=== PATIENT | female | born 1955 | race American Indian/Alaskan Native ===

== ENCOUNTER 2018-12-27 11:34 | Observation (INO) | payer BC, OTHER ==
[2018-12-27] MEDS ORDERED: Sodium Chloride 0.9% 1,000 ML IV ONE (11:40)
--- NOTE | 2018-12-27 11:40 | EDM.PDOC ---
ED HPI GENERAL MEDICAL PROBLEM - General Chief Complaint: General Stated Complaint: AMB Time Seen by Provider: 12/27/18 11:40 Source of Information: Reports: Patient History Limitations: Reports: No Limitations - History of Present Illness INITIAL COMMENTS - FREE TEXT/NARRATIVE: HISTORY AND PHYSICAL: History of present illness: Patient is a 63-year-old female who is brought to the emergency room by ambulance after a hypoglycemic event. Patient states she recently saw her primary care provider, Dr. Ladonna Santana for improved management of her diabetes. She states that there have been some changes in the insulin she has been administering. states that he draws up her short and long acting insulin for a week at a time. This morning she took 52 units of her long-acting insulin approximately 7 AM. She had fallen asleep after that. Family found her diaphoretic and difficult to arouse. They state her blood sugar was 37. When EMS arrived her blood sugar was reading 29. They administered one amp of D50 and 2 oral glucose tabs. Upon arrival to the emergency room her blood sugar is 119. She is alert and oriented although slow to respond. Her vital signs are stable. Patient has a past medical history of hypertension, type 2 diabetes with long- term insulin use, coronary artery disease, SD with stents, hypothyroidism. Review of systems: As per history of present illness and below otherwise all systems reviewed and negative. Past medical history: As per history of present illness and as reviewed below otherwise noncontributory. Surgical history: As per history of present illness and as reviewed below otherwise noncontributory. Social history: See social history for further information Family history: As per history of present illness and as reviewed below otherwise noncontributory. Physical exam: General: Well-developed and well-nourished 63-year-old female. She is alert and oriented, although slow to respond. Nontoxic appearing and in no acute distress. HEENT: Atraumatic, normocephalic, pupils equal and reactive bilaterally, negative for conjunctival pallor or scleral icterus, mucous membranes moist, TMs normal bilaterally, throat clear, neck supple, nontender, trachea midline. No drooling or trismus noted. No meningeal signs. No hot potato voice noted. Lungs: Clear to auscultation, breath sounds equal bilaterally, chest nontender. Heart: S1S2, regular rate and rhythm without overt murmur Abdomen: Soft, nondistended, nontender. Negative for masses or hepatosplenomegaly. Negative for costovertebral tenderness. Pelvis: Stable nontender. Genitourinary: Deferred. Rectal: Deferred. Skin: Patient's skin is diaphoretic from previous hypoglycemic event. Otherwise skin is intact and warm. No lesions or rashes noted. Extremities: Atraumatic, moves all extremities per self without difficulty or deficits, negative for cords or calf pain. Neurovascular unremarkable. Neuro: Awake, alert, oriented. Cranial nerves II through XII unremarkable. Cerebellum unremarkable. Motor and sensory unremarkable throughout. Exam nonfocal. Notes: Patient states she has not had breakfast/food yet this morning. We'll try has been ordered and we'll continue to monitor her blood sugar. Will give additional dextrose if needed. is at bedside. Vital signs are stable. 1218: After eating part of a meal tray; blood sugar 153. Vital signs remain stable. 1300: Patient has elevated troponin of 0.061. Patient denies any chest pain or shortness of breathe. This was initially ordered due to her PMH and delayed verbal response and difficulty tell me her symptoms and events leading up to EMS being called. Patients only complaints at this time is a generalized headache. 1305: Originally the ER provider at [facility] was consulted on this patient. She states that they are happy to accept this patient although feel that her troponin does not warrant the transfer itself. Dr. Soto did happen to be here evaluating another patient and therefore he was consulted. Dr Soto here to evaluate patient. Patient will be admitted for observation. Brittany did discuss with patient and family transfer versus admission. They're willing to and requesting to stay here at our facility. Blood glucose 212. Diagnostics: CBC, CMP, EKG, one view chest, UA, TSH, Troponin Therapeutics: IV fluid, meal tray, Aspirin 324 chew Impression: Hypoglycemia Elevated Troponin Plan: Observation admission to [facility] with telemetry Definitive disposition and diagnosis as appropriate pending reevaluation and review of above. Onset: Today - Related Data Allergies Allergy/AdvReac Type Severity Reaction Status Date / Time Penicillins Allergy Severe Shortness Verified 12/27/18 11:50 of Breath metformin Allergy Mild itchiness Verified 12/27/18 11:50 propoxyphene HCl Allergy Mild itchiness Verified 12/27/18 11:50 [From Darvon] sulfamethoxazole Allergy Mild itchiness Verified 12/27/18 11:50 [From Bactrim] trimethoprim [From Bactrim] Allergy Mild itchiness Verified 12/27/18 11:50 propoxypene Allergy Mild itchiness Uncoded 05/15/16 13:38 Home Meds: Home Meds Chlorthalidone 25 mg PO DAILY 05/15/16 [History] Glimepiride [Amaryl] 4 mg PO BIDAC 05/15/16 [History] Insulin Aspart [Novolog Flexpen] 5 unit SQ TIDAC 05/15/16 [History] Insulin Detemir [Levemir Flextouch] 63 unit SQ ACBREAKFAST 05/15/16 [History] Levothyroxine 75 mcg PO ACBREAKFAST 05/15/16 [History] Metoprolol Tartrate 25 mg PO DAILY 05/15/16 [History] Nitroglycerin [Nitrostat] 0.4 mg SL Q5M PRN 05/15/16 [History] Ramipril [Altace] 5 mg PO DAILY 05/15/16 [History] Rosuvastatin Calcium 10 mg PO DAILY 05/15/16 [History] Aspirin [Ecotrin] 325 mg PO DAILY 30 Days tablet. 05/16/16 [Rx] Past Medical History HEENT History: Reports: Epistaxis Other HEENT History: with blood thinner Cardiovascular History: Reports: CAD, High Cholesterol, Hypertension, SD, Stents Other Cardiovascular History: Stents X 1, 3 yrs ago [employer] History: Reports: Musculoskeletal History: Reports: Neck Pain, Chronic, Osteoarthritis Endocrine/Metabolic History: Reports: Diabetes, Type II, Hypothyroidism Oncologic (Cancer) History: Reports: Uterine Other Oncologic History: hysterectomy - Past Surgical History GI Surgical History: Reports: Cholecystectomy, Hernia, Abdominal Social & Family History - Family History Family Medical History: Noncontributory Cardiac: Reports: Bypass, [place] Other Cardiac Family History: parents - heart bypass Other Respiratory Family Hisory: mother - lung CA Other Oncologic Family History: lung Ca- mother. brother - brain tumor. brain Ca- Aunt. Uncle - stomach CA ED ROS GENERAL - Review of Systems Review Of Systems: ROS reveals no pertinent complaints other than HPI. ED EXAM, GENERAL - Physical Exam Exam: See Below (See dictation) Course - Vital Signs Last Recorded V/S: Last Vital Signs Temp 96.2 F 12/27/18 11:51 Pulse 69 12/27/18 11:51 Resp 17 12/27/18 11:51 BP 112/64 12/27/18 11:51 Pulse Ox 96 12/27/18 11:51 - Orders/Labs/Meds Orders: Active Orders 24 hr Category Date Time Status Admission Status [Patient Status] [ADT] Stat ADT 12/27/18 13:19 Active Blood Glucose Check, Bedside [RC] ONETIME Care 12/27/18 11:41 Active Communication Order [RC] STAT Care 12/27/18 11:43 Active EKG Documentation Completion [RC] STAT Care 12/27/18 11:41 Active Chest 1V Frontal [CR] Stat Exams 12/27/18 11:41 Taken Sodium Chloride 0.9% [Normal Saline] 1,000 ml Med 12/27/18 11:40 Active IV STAT Medication Orders Sodium Chloride (Normal Saline) 1,000 mls @ 125 mls/hr IV STAT ONE Stop: 12/27/18 19:39 Last Admin: 12/27/18 11:44 Dose: 125 mls/hr Labs: Laboratory Tests 12/27/18 12/27/18 12/27/18 Range/Units 11:58 11:58 11:58 WBC 10.56 (4.0-11.0) K/uL RBC 4.38 (4.30-5.90) M/uL Hgb 12.6 (12.0-16.0) g/dL Hct 37.3 (36.0-46.0) % MCV 85.2 (80.0-98.0) fL MCH 28.8 (27.0-32.0) pg MCHC 33.8 (31.0-37.0) g/dL RDW Std Deviation 43.1 (28.0-62.0) fl RDW Coeff of Gurinder 14 (11.0-15.0) % Plt Count 233 (150-400) K/uL MPV 10.30 (7.40-12.00) fL Neut % (Auto) 82.9 H (48.0-80.0) % Lymph % (Auto) 9.0 L (16.0-40.0) % [place] % (Auto) 6.4 (0.0-15.0) % Eos % (Auto) 1.4 (0.0-7.0) % Baso % (Auto) 0.3 (0.0-1.5) % Neut # (Auto) 8.8 H (1.4-5.7) K/uL Lymph # (Auto) 1.0 (0.6-2.4) K/uL [place] # (Auto) 0.7 (0.0-0.8) K/uL Eos # (Auto) 0.2 (0.0-0.7) K/uL Baso # (Auto) 0.0 (0.0-0.1) K/uL Sodium 141 (136-145) mmol/L Potassium 3.8 (3.5-5.1) mmol/L Chloride 106 (98-107) mmol/L Carbon Dioxide 25.3 (21.0-32.0) mmol/L BUN 25 H (7.0-18.0) mg/dL Creatinine 1.0 (0.6-1.0) mg/dL Est Cr Clr Drug Dosing TNP Estimated GFR (MDRD) 56.4 ml/min Glucose 102 (74-106) mg/dL Calcium 8.8 (8.5-10.1) mg/dL Total Bilirubin 0.4 (0.2-1.0) mg/dL AST 14 L (15-37) IU/L ALT 18 (14-63) IU/L Alkaline Phosphatase 95 (46-116) U/L Troponin I 0.061 H* (0.000-0.056) ng/mL Total Protein 7.0 (6.4-8.2) g/dL Albumin 3.0 L (3.4-5.0) g/dL Globulin 4.0 (2.6-4.0) g/dL Albumin/Globulin Ratio 0.8 L (0.9-1.6) TSH 3rd Generation 6.87 H (0.36-3.74) uIU/mL Urine Color Urine Appearance Urine pH (5.0-8.0) Ur Specific [place] (1.001-1.035) Urine Protein (NEGATIVE) mg/dL Urine Glucose (UA) (NEGATIVE) mg/dL Urine Ketones (NEGATIVE) mg/dL Urine Occult Blood (NEGATIVE) Urine Nitrite (NEGATIVE) Urine Bilirubin (NEGATIVE) Urine Ictotest Urine Urobilinogen (<2.0) EU/dL Ur Leukocyte Esterase (NEGATIVE) 12/27/18 Range/Units 13:05 WBC (4.0-11.0) K/uL RBC (4.30-5.90) M/uL Hgb (12.0-16.0) g/dL Hct (36.0-46.0) % MCV (80.0-98.0) fL MCH (27.0-32.0) pg MCHC (31.0-37.0) g/dL RDW Std Deviation (28.0-62.0) fl RDW Coeff of Gurinder (11.0-15.0) % Plt Count (150-400) K/uL MPV (7.40-12.00) fL Neut % (Auto) (48.0-80.0) % Lymph % (Auto) (16.0-40.0) % [place] % (Auto) (0.0-15.0) % Eos % (Auto) (0.0-7.0) % Baso % (Auto) (0.0-1.5) % Neut # (Auto) (1.4-5.7) K/uL Lymph # (Auto) (0.6-2.4) K/uL [place] # (Auto) (0.0-0.8) K/uL Eos # (Auto) (0.0-0.7) K/uL Baso # (Auto) (0.0-0.1) K/uL Sodium (136-145) mmol/L Potassium (3.5-5.1) mmol/L Chloride (98-107) mmol/L Carbon Dioxide (21.0-32.0) mmol/L BUN (7.0-18.0) mg/dL Creatinine (0.6-1.0) mg/dL Est Cr Clr Drug Dosing Estimated GFR (MDRD) ml/min Glucose (74-106) mg/dL Calcium (8.5-10.1) mg/dL Total Bilirubin (0.2-1.0) mg/dL AST (15-37) IU/L ALT (14-63) IU/L Alkaline Phosphatase (46-116) U/L Troponin I (0.000-0.056) ng/mL Total Protein (6.4-8.2) g/dL Albumin (3.4-5.0) g/dL Globulin (2.6-4.0) g/dL Albumin/Globulin Ratio (0.9-1.6) TSH 3rd Generation (0.36-3.74) uIU/mL Urine Color YELLOW Urine Appearance CLEAR Urine pH 6.0 (5.0-8.0) Ur Specific [place] 1.025 (1.001-1.035) Urine Protein NEGATIVE (NEGATIVE) mg/dL Urine Glucose (UA) 100 H (NEGATIVE) mg/dL Urine Ketones TRACE H (NEGATIVE) mg/dL Urine Occult Blood NEGATIVE (NEGATIVE) Urine Nitrite NEGATIVE (NEGATIVE) Urine Bilirubin SMALL H (NEGATIVE) Urine Ictotest NEGATIVE Urine Urobilinogen 1.0 (<2.0) EU/dL Ur Leukocyte Esterase NEGATIVE (NEGATIVE) Meds: Medications Generic Name Dose Route Start Last Admin Trade Name Freq PRN Reason Stop Dose Admin Sodium Chloride 1,000 mls @ 125 mls/hr 12/27/18 11:40 12/27/18 11:44 Normal Saline IV 12/27/18 19:39 125 mls/hr STAT ONE Administration Discontinued Medications Generic Name Dose Route Start Last Admin Trade Name Freq PRN Reason Stop Dose Admin Aspirin 324 mg 12/27/18 13:06 12/27/18 13:09 Aspirin PO 12/27/18 13:07 324 mg ONETIME ONE Administration Dextrose/Water 50 ml 12/27/18 11:52 12/27/18 12:22 Dextrose 50% In Water IVPUSH 12/27/18 11:53 Not Given ONETIME ONE Morphine Sulfate 2 mg 12/27/18 12:48 12/27/18 12:54 Morphine IVPUSH 12/27/18 12:49 2 mg ONETIME ONE Administration Departure - Departure Time of Disposition: 13:34 Disposition: Refer to Observation Clinical Impression: Hypoglycemia, Elevated troponin - Discharge Information Referrals: PCP,Unknown [Primary Care Provider] - Forms: ED Department Discharge - My Orders Last 24 Hours: My Active Orders 12/27/18 11:40 Sodium Chloride 0.9% [Normal Saline] 1,000 ml IV STAT 12/27/18 11:41 Blood Glucose Check, Bedside [RC] ONETIME EKG Documentation Completion [RC] STAT Chest 1V Frontal [CR] Stat 12/27/18 11:43 Communication Order [RC] STAT 12/27/18 13:19 Admission Status [Patient Status] [ADT] Stat - Assessment/Plan Last 24 Hours: My Active Orders 12/27/18 11:40 Sodium Chloride 0.9% [Normal Saline] 1,000 ml IV STAT 12/27/18 11:41 Blood Glucose Check, Bedside [RC] ONETIME EKG Documentation Completion [RC] STAT Chest 1V Frontal [CR] Stat 12/27/18 11:43 Communication Order [RC] STAT 12/27/18 13:19 Admission Status [Patient Status] [ADT] Stat
[2018-12-27] MEDS ORDERED: 50% Dextrose in Water 50 ML Syringe IVPUSH ONE (11:52)
[2018-12-27] MEDS ORDERED: Morphine 2 MG/ML Syringe IVPUSH ONE (12:48)
[2018-12-27 12:50] LABS: CHLORIDE,CL 106 mmol/L (98-107); SODIUM,NA 141 mmol/L (136-145)
[2018-12-27] MEDS ORDERED: Aspirin 81 MG Tab.Chew PO ONE (13:06)
[2018-12-27] MEDS ORDERED: Morphine 2 MG/ML Syringe IVPUSH PRN (14:58)
[2018-12-27] MEDS ORDERED: Sodium Chloride 0.9% 10 ML Syringe FLUSH PRN (14:58)
[2018-12-27] MEDS ORDERED: Ondansetron 4 MG/2 ML SDV IVPUSH PRN (14:58)
[2018-12-27] MEDS ORDERED: Sodium Chloride 0.9% 10 ML SDV IV PRN (14:58)
[2018-12-27] MEDS ORDERED: Sodium Chloride 0.9% 2.5 ML Syringe FLUSH PRN (14:58)
[2018-12-27] MEDS ORDERED: Enoxaparin 40 MG/0.4 ML Syringe SUBCUT SCH (15:00)
--- NOTE | 2018-12-27 16:18 | PCM.HP ---
H&P History of Present Illness - General Date of Service: 12/27/18 Admit Problem/Dx: Admission Diagnosis/Problem Admission Diagnosis/Problem Elevated troponin I level History Limitations: Reports: No Limitations - History of Present Illness Initial Comments - Free Text/Narative: This is a 63-year-old female with a history of type 2 diabetes and hypertension along with cardiac stenting done 2 years prior being admitted for a hypoglycemic event along with mildly elevated troponins. Patient states that she woke up this morning checked her blood sugars and they were above 112 her daily morning Levemir dose of 54 units and just prior to taking that dose she did state she had half a sandwich. However throughout the rest of the morning patient did not have any further oral intake and felt tired slightly fatigued rechecked her blood sugar noticed that it was 60 and then was socially brought over to the ED because she continued to be difficult to arouse and diaphoretic and was noted to have a blood sugar reading of 29. Patient was also noted to have mild elevation of her troponins but denied any chest pain or EKG changes. She was given to oral glucose tabs and was given a amp of D50 which brought her blood sugars up to 119. Patient is now stable. - Related Data Allergies/Adverse Reactions: Allergies Allergy/AdvReac Type Severity Reaction Status Date / Time Penicillins Allergy Severe Shortness Verified 12/27/18 11:50 of Breath metformin Allergy Mild itchiness Verified 12/27/18 11:50 propoxyphene HCl Allergy Mild itchiness Verified 12/27/18 11:50 [From Darvon] sulfamethoxazole Allergy Mild itchiness Verified 12/27/18 11:50 [From Bactrim] trimethoprim [From Bactrim] Allergy Mild itchiness Verified 12/27/18 11:50 propoxypene Allergy Mild itchiness Uncoded 05/15/16 13:38 Home Medications: Home Meds Chlorthalidone 25 mg PO DAILY 05/15/16 [History] Glimepiride [Amaryl] 4 mg PO BIDAC 05/15/16 [History] Insulin Aspart [Novolog Flexpen] 5 unit SQ TIDAC 05/15/16 [History] Insulin Detemir [Levemir Flextouch] 63 unit SQ ACBREAKFAST 05/15/16 [History] Levothyroxine 75 mcg PO ACBREAKFAST 05/15/16 [History] Metoprolol Tartrate 25 mg PO DAILY 05/15/16 [History] Nitroglycerin [Nitrostat] 0.4 mg SL Q5M PRN 05/15/16 [History] Ramipril [Altace] 5 mg PO DAILY 05/15/16 [History] Rosuvastatin Calcium 10 mg PO DAILY 05/15/16 [History] Aspirin [Ecotrin] 325 mg PO DAILY 30 Days tablet. 05/16/16 [Rx] Past Medical History HEENT History: Reports: Epistaxis Other HEENT History: with blood thinner Cardiovascular History: Reports: CAD, High Cholesterol, Hypertension, PR, Stents Other Cardiovascular History: Stents X 1, 3 yrs ago [employer] History: Reports: Musculoskeletal History: Reports: Neck Pain, Chronic, Osteoarthritis Endocrine/Metabolic History: Reports: Diabetes, Type II, Hypothyroidism Oncologic (Cancer) History: Reports: Uterine Other Oncologic History: hysterectomy - Past Surgical History GI Surgical History: Reports: Cholecystectomy, Hernia, Abdominal Social & Family History - Family History Family Medical History: Noncontributory Cardiac: Reports: Bypass, PR Other Cardiac Family History: parents - heart bypass Other Respiratory Family Hisory: mother - lung CA Other Oncologic Family History: lung Ca- mother. brother - brain tumor. brain Ca- Aunt. Uncle - stomach CA - Tobacco Use Smoking Status *Q: Current Every Day Smoker Years of Tobacco use: 40 Packs/Tins Daily: 0.5 - Caffeine Use Caffeine Use: Reports: None - Recreational Drug Use Recreational Drug Use: No H&P Review of Systems - Review of Systems: Review Of Systems: See Below Exam - Exam Exam: See Below - Vital Signs Vital Signs: Last Vital Signs Temp 36.1 C 12/27/18 15:08 Pulse 70 12/27/18 15:08 Resp 18 12/27/18 15:08 BP 100/58 L 12/27/18 15:08 Pulse Ox 98 12/27/18 15:44 Weight: 76.34 kg - Exam Quality Assessment: Supplemental Oxygen General: Alert, Oriented, Cooperative Lungs: Clear to Auscultation, Normal Respiratory Effort Cardiovascular: Regular Rate, Regular Rhythm GI/Abdominal Exam: Normal Bowel Sounds, Soft - Patient Data Lab Results Last 24 hrs: Laboratory Results - last 24 hr 12/27/18 12/27/18 12/27/18 Range/Units 11:58 11:58 11:58 WBC 10.56 (4.0-11.0) K/uL RBC 4.38 (4.30-5.90) M/uL Hgb 12.6 (12.0-16.0) g/dL Hct 37.3 (36.0-46.0) % MCV 85.2 (80.0-98.0) fL MCH 28.8 (27.0-32.0) pg MCHC 33.8 (31.0-37.0) g/dL RDW Std Deviation 43.1 (28.0-62.0) fl RDW Coeff of Gurinder 14 (11.0-15.0) % Plt Count 233 (150-400) K/uL MPV 10.30 (7.40-12.00) fL Neut % (Auto) 82.9 H (48.0-80.0) % Lymph % (Auto) 9.0 L (16.0-40.0) % [place] % (Auto) 6.4 (0.0-15.0) % Eos % (Auto) 1.4 (0.0-7.0) % Baso % (Auto) 0.3 (0.0-1.5) % Neut # (Auto) 8.8 H (1.4-5.7) K/uL Lymph # (Auto) 1.0 (0.6-2.4) K/uL [place] # (Auto) 0.7 (0.0-0.8) K/uL Eos # (Auto) 0.2 (0.0-0.7) K/uL Baso # (Auto) 0.0 (0.0-0.1) K/uL Sodium 141 (136-145) mmol/L Potassium 3.8 (3.5-5.1) mmol/L Chloride 106 (98-107) mmol/L Carbon Dioxide 25.3 (21.0-32.0) mmol/L BUN 25 H (7.0-18.0) mg/dL Creatinine 1.0 (0.6-1.0) mg/dL Est Cr Clr Drug Dosing TNP Estimated GFR (MDRD) 56.4 ml/min Glucose 102 (74-106) mg/dL Calcium 8.8 (8.5-10.1) mg/dL Total Bilirubin 0.4 (0.2-1.0) mg/dL AST 14 L (15-37) IU/L ALT 18 (14-63) IU/L Alkaline Phosphatase 95 (46-116) U/L Troponin I 0.061 H* (0.000-0.056) ng/mL Total Protein 7.0 (6.4-8.2) g/dL Albumin 3.0 L (3.4-5.0) g/dL Globulin 4.0 (2.6-4.0) g/dL Albumin/Globulin Ratio 0.8 L (0.9-1.6) Free T4 (0.76-1.46) ng/dL TSH 3rd Generation 6.87 H (0.36-3.74) uIU/mL Urine Color Urine Appearance Urine pH (5.0-8.0) Ur Specific [place] (1.001-1.035) Urine Protein (NEGATIVE) mg/dL Urine Glucose (UA) (NEGATIVE) mg/dL Urine Ketones (NEGATIVE) mg/dL Urine Occult Blood (NEGATIVE) Urine Nitrite (NEGATIVE) Urine Bilirubin (NEGATIVE) Urine Ictotest Urine Urobilinogen (<2.0) EU/dL Ur Leukocyte Esterase (NEGATIVE) 12/27/18 12/27/18 Range/Units 11:58 13:05 WBC (4.0-11.0) K/uL RBC (4.30-5.90) M/uL Hgb (12.0-16.0) g/dL Hct (36.0-46.0) % MCV (80.0-98.0) fL MCH (27.0-32.0) pg MCHC (31.0-37.0) g/dL RDW Std Deviation (28.0-62.0) fl RDW Coeff of Gurinder (11.0-15.0) % Plt Count (150-400) K/uL MPV (7.40-12.00) fL Neut % (Auto) (48.0-80.0) % Lymph % (Auto) (16.0-40.0) % [place] % (Auto) (0.0-15.0) % Eos % (Auto) (0.0-7.0) % Baso % (Auto) (0.0-1.5) % Neut # (Auto) (1.4-5.7) K/uL Lymph # (Auto) (0.6-2.4) K/uL [place] # (Auto) (0.0-0.8) K/uL Eos # (Auto) (0.0-0.7) K/uL Baso # (Auto) (0.0-0.1) K/uL Sodium (136-145) mmol/L Potassium (3.5-5.1) mmol/L Chloride (98-107) mmol/L Carbon Dioxide (21.0-32.0) mmol/L BUN (7.0-18.0) mg/dL Creatinine (0.6-1.0) mg/dL Est Cr Clr Drug Dosing Estimated GFR (MDRD) ml/min Glucose (74-106) mg/dL Calcium (8.5-10.1) mg/dL Total Bilirubin (0.2-1.0) mg/dL AST (15-37) IU/L ALT (14-63) IU/L Alkaline Phosphatase (46-116) U/L Troponin I (0.000-0.056) ng/mL Total Protein (6.4-8.2) g/dL Albumin (3.4-5.0) g/dL Globulin (2.6-4.0) g/dL Albumin/Globulin Ratio (0.9-1.6) Free T4 0.95 (0.76-1.46) ng/dL TSH 3rd Generation (0.36-3.74) uIU/mL Urine Color YELLOW Urine Appearance CLEAR Urine pH 6.0 (5.0-8.0) Ur Specific [place] 1.025 (1.001-1.035) Urine Protein NEGATIVE (NEGATIVE) mg/dL Urine Glucose (UA) 100 H (NEGATIVE) mg/dL Urine Ketones TRACE H (NEGATIVE) mg/dL Urine Occult Blood NEGATIVE (NEGATIVE) Urine Nitrite NEGATIVE (NEGATIVE) Urine Bilirubin SMALL H (NEGATIVE) Urine Ictotest NEGATIVE Urine Urobilinogen 1.0 (<2.0) EU/dL Ur Leukocyte Esterase NEGATIVE (NEGATIVE) Result Diagrams: 12/27/18 11:58 12/27/18 11:58 Problem List Initiated/Reviewed/Updated: Yes Orders Last 24hrs: Active Orders 24 hr Category Date Time Status Admission Status [Patient Status] [ADT] Stat ADT 12/27/18 13:19 Active Blood Glucose Check, Bedside [RC] ONETIME Care 12/27/18 11:41 Active Blood Glucose Check, Bedside [RC] QIDACANDBED Care 12/27/18 14:58 Ordered Communication Order [RC] STAT Care 12/27/18 11:43 Active EKG Documentation Completion [RC] STAT Care 12/27/18 11:41 Active Height and Weight [RC] UPON Care 12/27/18 14:58 Ordered Intake and Output [RC] QSHIFT Care 12/27/18 14:58 Ordered Oxygen Therapy [RC] PRN Care 12/27/18 14:58 Ordered Telemetry Monitoring [Cardiac Monitoring] [RC] . Care 12/27/18 15:03 Ordered DIRECTED Up With Assistance [RC] ASDIRECTED Care 12/27/18 14:58 Ordered VTE/DVT Education [RC] PER UNIT ROUTINE Care 12/27/18 14:58 Ordered Vital Signs [RC] Q4H Care 12/27/18 14:58 Ordered [place] [employer] Diet [DIET] Diet 12/27/18 Dinner Ordered Chest 1V Frontal [CR] Stat Exams 12/27/18 11:41 Taken CBC WITH AUTO DIFF [HEME] AM Lab 12/28/18 05:11 Ordered COMPREHENSIVE METABOLIC PN,CMP [CHEM] AM Lab 12/28/18 05:11 Ordered TROPONIN I [CHEM] Q6H Lab 12/27/18 18:00 Ordered TROPONIN I [CHEM] Q6H Lab 12/28/18 00:00 Ordered Enoxaparin [Lovenox] Med 12/27/18 15:00 Ordered 40 mg SUBCUT Q24H Insulin Aspart [NovoLOG] Med 12/27/18 17:00 Ordered See Protocol SUBCUT TIDAC Morphine Med 12/27/18 14:58 Ordered 2 mg IVPUSH Q2H PRN Ondansetron [Zofran] Med 12/27/18 14:58 Ordered 4 mg IVPUSH Q4H PRN Sodium Chloride 0.9% [Normal Saline] Med 12/27/18 14:58 Ordered 10 ml IV ASDIRECTED PRN Sodium Chloride 0.9% [Normal Saline] 1,000 ml Med 12/27/18 11:40 Active IV STAT Sodium Chloride 0.9% [Saline Flush] Med 12/27/18 14:58 Ordered 10 ml FLUSH ASDIRECTED PRN Sodium Chloride 0.9% [Saline Flush] Med 12/27/18 14:58 Ordered 2.5 ml FLUSH ASDIRECTED PRN Peripheral IV Insertion Adult [OM.PC] Routine Oth 12/27/18 14:58 Ordered Saline Lock Insert [OM.PC] Routine Oth 12/27/18 14:58 Ordered Resuscitation Status Routine Resus Stat 12/27/18 14:58 Ordered Medication Orders Enoxaparin Sodium (Lovenox) 40 mg SUBCUT Q24H SHANNAN Sodium Chloride (Normal Saline) 1,000 mls @ 125 mls/hr IV STAT ONE Stop: 12/27/18 19:39 Last Admin: 12/27/18 11:44 Dose: 125 mls/hr Insulin Aspart (Novolog) 0 unit SUBCUT TIDAC SHANNAN; Protocol Morphine Sulfate (Morphine) 2 mg IVPUSH Q2H PRN PRN Reason: Pain (severe 7-10) Stop: 12/28/18 14:59 Ondansetron HCl (Zofran) 4 mg IVPUSH Q4H PRN PRN Reason: Nausea/Vomiting Sodium Chloride (Saline Flush) 10 ml FLUSH ASDIRECTED PRN PRN Reason: Keep Vein Open Sodium Chloride (Saline Flush) 2.5 ml FLUSH ASDIRECTED PRN PRN Reason: Keep Vein Open Sodium Chloride (Normal Saline) 10 ml IV ASDIRECTED PRN PRN Reason: IV Use Assessment/Plan Comment:: This is a 63-year-old female being admitted secondary to diaphoresis, decreased arousability secondary to a blood sugar of 32 as well as mild elevation of her troponins. Most likely etiology is hypoglycemia secondary to insulin use with forgetting to eat after the insulin dose which also likely resulted in demand ischemia resulting in troponin leak. The patient is stable her blood sugars are now above 150, patient to have her troponins trended 3, placed on cardiac monitoring. -Glucose checks to ensure no further episode of hypoglycemia, patient is put on insulin sliding scale low-dose. Patient should have cardiac stress testing done once discharged from this current stay and patient will also be set up with Dr. 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
[2018-12-27] MEDS ORDERED: Insulin Aspart 100 Units/ML 3 ML Pen SUBCUT SCH (17:00)
[2018-12-27] MEDS: Insulin Aspart 100 Units/ML 3 ML Pen SUBCUT SCH (21:34)
[2018-12-28] MEDS ORDERED: Acetaminophen 325 MG Tab ONE (05:18)
[2018-12-28 06:25] LABS: CHLORIDE,CL 107 mmol/L (98-107); SODIUM,NA 143 mmol/L (136-145)
[2018-12-28] MEDS ORDERED: Levothyroxine 75 MCG Tab PO SCH (07:30)
[2018-12-28] MEDS: Insulin Aspart 100 Units/ML 3 ML Pen SUBCUT SCH ×2 (08:35→11:25)
[2018-12-28] MEDS ORDERED: Chlorthalidone 25 MG Tab PO SCH (09:00)
[2018-12-28] MEDS ORDERED: Metoprolol Tartrate 25 MG Tab PO SCH (09:00)
[2018-12-28 13:05] VITALS: BP 101/61
--- NOTE | 2018-12-30 10:35 | CR ---
EXAM DATE: 12/27/18 PATIENT'S AGE: 63 Patient: RACHEL MORALES Facility: [facility] Site Site : 1955 Study: XRay-Chest [id number]/[id number] 12:25:26 PM Ordering Physician: ANTON HARRELL Final Report: INDICATION: Diaphoresis. Hypoglycemia. TECHNIQUE: PA and lateral. COMPARISON: 05/15/2016. FINDINGS: Lungs low in volume with crowded markings in the bases. No obvious infiltrate. No pleural effusion. Heart size and pulmonary vasculature within normal limits, allowing for the shallow inspiration. Interval sternotomy. No significant bony abnormality. IMPRESSION: Negative chest except for interval sternotomy, allowing for shallow inspiration. Dictated by Kerwin Loredo MD @ Dec 27 2018 12:50PM Signed by: Kerwin Loredo MD @12/27/2018 12:52:14 PM (Electronic Signature) Report Signed by Proxy. [facility]OSPITALJessi
== END 2018-12-28 13:00 | disposition home or self-care (01) ==
LOC: MW.ED 11:34 → MW.MS 13:59
PROVIDERS: ADMIT Internal Medicine; ATTEND Internal Medicine
DX: E11.649 Type 2 diabetes mellitus with hypoglycemia without coma (principal); R74.8 Abnormal levels of other serum enzymes; I10 Essential (primary) hypertension; I25.10 Atherosclerotic heart disease of native coronary artery without angina pectoris; I25.2 Old myocardial infarction; E78.00 Pure hypercholesterolemia, unspecified; E03.9 Hypothyroidism, unspecified; F17.200 Nicotine dependence, unspecified, uncomplicated; Z88.0 Allergy status to penicillin; Z88.2 Allergy status to sulfonamides; Z88.8 Allergy status to other drugs, medicaments and biological substances; Z95.5 Presence of coronary angioplasty implant and graft; Z79.4 Long term (current) use of insulin; Z79.82 Long term (current) use of aspirin; Z79.899 Other long term (current) drug therapy
CPT/HCPCS: 36415; 71045; 80053; 81003; 82962; 84439; 84443; 84484; 85025; 93005; 96361; 96374; 99285; A9270; J1650; J1815; J2270; J7040; 96372; 99283; G0378

== ENCOUNTER 2021-05-06 06:32 | Day surgery (SDC) | payer OTHER ==
[~2021-05-06 06:32] MED LIST: Lactated Ringers 1,000 ML IV SCH
[2021-05-06] MEDS ORDERED: propofoL 50 ML ONE (06:59)
[2021-05-06] MEDS ORDERED: fentaNYL 100 MCG/2 ML SDV ONE (07:08)
[2021-05-06] MEDS ORDERED: Benzocaine 20% Topical Spray UD ONE (07:27)
--- NOTE | 2021-05-06 09:27 | PCM.PREANE ---
Preanesthetic Assessment - Anesthesia/Transfusion/Family Hx Anesthesia History: Prior Anesthesia Without Reaction Transfusion History: Prior Transfusion Without Reaction - Review of Systems General: No Symptoms Pulmonary: Shortness of Breath Cardiovascular: No Symptoms Gastrointestinal: No Symptoms Neurological: No Symptoms Other: Reports: None - Physical Assessment NPO Status Date: 05/06/21 NPO Status Time: 00:00 Height: 5 ft 3 in Weight: 158 lb ASA Class: 3 Mental Status: Alert & Oriented x3 Airway Class: Mallampati = 2 Dentition: Reports: Dentures Thyro-Mental Finger Breadths: 3 Mouth Opening Finger Breadths: 3 ROM/Head Extension: Full Lungs: Clear to Auscultation, Normal Respiratory Effort Cardiovascular: Regular Rate, Regular Rhythm - Allergies Allergies/Adverse Reactions: Allergies Allergy/AdvReac Type Severity Reaction Status Date / Time Penicillins Allergy Severe Shortness Verified 05/02/21 09:49 of Breath metformin Allergy Mild itchiness Verified 05/02/21 09:49 sulfamethoxazole Allergy Mild itchiness Verified 05/02/21 09:49 [From Bactrim] trimethoprim [From Bactrim] Allergy Mild itchiness Verified 05/02/21 09:49 acetaminophen Allergy Itching Verified 05/02/21 09:50 [From Darvocet-N] propoxyphene Allergy Itching Verified 05/02/21 09:50 [From Darvocet-N] - Blood Blood Available: No - Acknowledgements Anesthesia Type Planned: General Anesthesia Pt an Appropriate Candidate for the Planned Anesthesia: Yes Alternatives and Risks of Anesthesia Discussed w Pt/Guardian: Yes Pt/Guardian Understands and Agrees with Anesthesia Plan: Yes PreAnesthesia Questionnaire HEENT History: Reports: Other (See Below) Other HEENT History: wears glasses, top and bottom denture Cardiovascular History: Reports: CAD, High Cholesterol, Hypertension Respiratory History: Reports: None Gastrointestinal History: Reports: GERD, Other (See Below) Other Gastrointestinal History: epigastric pain and vomiting Genitourinary History: Reports: Other (See Below) Other Genitourinary History: recent UTI 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: Musculoskeletal History: Reports: Fracture, Osteoarthritis Other Musculoskeletal History: hx ankle fx Neurological History: Reports: None Psychiatric History: Reports: None Endocrine/Metabolic History: Reports: Diabetes, Type II, Hypothyroidism Hematologic History: Reports: Anticoagulation Therapy, Blood Transfusion(s) Immunologic History: Reports: None Oncologic (Cancer) History: Reports: Uterine Dermatologic History: Reports: None - Past Surgical History Head Surgeries/Procedures: Reports: None HEENT Surgical History: Reports: Tonsillectomy, Other (See Below) Other HEENT Surgeries/Procedures: hx corrective jaw surgery Cardiovascular Surgical History: Reports: Coronary Artery Bypass Respiratory Surgical History: Reports: None GI Surgical History: Reports: Cholecystectomy, Hernia, Abdominal Female Surgical History: Reports: Hysterectomy, Salpingo-Oophorectomy Other Female Surgeries/Procedures: complete hysterectomy with node bx for uterine cancer Endocrine Surgical History: Reports: None Neurological Surgical History: Reports: None Musculoskeletal Surgical History: Reports: None Oncologic Surgical History: Reports: Other (See Below) Other Oncologic Surgeries/Procedures: complete hysterectomy Dermatological Surgical History: Reports: None - SUBSTANCE USE Tobacco Use Status *Q: Former Tobacco User Tobacco Use Within Last Twelve Months: Cigarettes - HOME MEDS Home Medications: Home Meds Chlorthalidone 25 mg PO DAILY 05/15/16 [History] Insulin Aspart [Novolog Flexpen] 1 injection SQ TIDAC 05/15/16 [History] Clopidogrel Bisulfate [Plavix] 75 mg PO DAILY 05/02/21 [History] Insulin Glarg,Human.Rec.Analog [Lantus] 28 units SUBCUT ACBREAKFAST 05/02/21 [History] Omeprazole 40 mg PO DAILY 05/02/21 [History] Pioglitazone HCl [Actos] 30 mg PO DAILY 05/02/21 [History] Thyroid [[place] Thyroid] 60 mg PO DAILY 05/02/21 [History] Verapamil HCl 80 mg PO DAILY 05/02/21 [History] atorvaSTATin Calcium [Atorvastatin Calcium] 40 mg PO DAILY 05/02/21 [History] carvediloL [Carvedilol] 12.5 mg PO DAILY 05/02/21 [History] - CURRENT (IN HOUSE) MEDS Current Meds: Current Medications Lactated Ringer's (Ringers, Lactated) 1,000 mls @ 125 mls/hr IV ASDIRECTED SHANNAN Discontinued Medications Benzocaine (Benzocaine 20% Topical [place] Ud) Confirm Administered Dose 1 each .ROUTE .STK-MED ONE Stop: 05/06/21 07:28 Fentanyl (Fentanyl 100 Mcg/2 Ml Sdv) Confirm Administered Dose 100 mcg .ROUTE .STK-MED ONE Stop: 05/06/21 07:09 Propofol (Diprivan 50 Ml) Confirm Administered Dose 50 mls @ as directed .ROUTE .STK-MED ONE Stop: 05/06/21 07:00 Lidocaine HCl (Lidocaine 1% 5 Ml Sdv) Confirm Administered Dose 5 ml .ROUTE .STK-MED ONE Stop: 05/06/21 07:09
--- NOTE | 2021-05-06 09:27 | PCM.POSTAN ---
POST ANESTHESIA ASSESSMENT - MENTAL STATUS Mental Status: Alert, Oriented - VITAL SIGNS Vital Signs: Last Vital Signs Temp 97.5 F 05/06/21 08:45 Pulse 89 05/06/21 08:45 Resp 15 05/06/21 08:45 BP 134/82 05/06/21 08:45 Pulse Ox 89 L 05/06/21 08:45 - RESPIRATORY Respiratory Status: Respiratory Rate WNL, Airway Patent, O2 Saturation Stable - CARDIOVASCULAR CV Status: Pulse Rate WNL, Blood Pressure Stable - GASTROINTESTINAL GI Status: No Symptoms - POST OP HYDRATION Hydration Status: Adequate & Stable
--- NOTE | 2021-05-06 09:28 | PCM48HPAN ---
Post Anesthesia Note - EVALUATION WITHIN 48HRS OF ANESTHETIC Vital Signs in Normal Range: Yes Patient Participated in Evaluation: Yes Respiratory Function Stable: Yes Airway Patent: Yes Cardiovascular Function Stable: Yes Hydration Status Stable: Yes Pain Control Satisfactory: Yes Nausea and Vomiting Control Satisfactory: Yes Mental Status Recovered: Yes Vital Signs: Last Vital Signs Temp 97.5 F 05/06/21 08:45 Pulse 89 05/06/21 08:45 Resp 15 05/06/21 08:45 BP 134/82 05/06/21 08:45 Pulse Ox 89 L 05/06/21 08:45
--- NOTE | 2021-05-06 10:22 | OR ---
SURGEON: Darryl Wan M.D. DATE OF PROCEDURE: 05/06/2021 OPERATION PERFORMED: Esophagogastroduodenoscopy with antral and gastric body biopsies, and esophageal biopsy. PRIMARY SURGEON: Darryl Wan M.D. ANESTHESIA: MAC. ASA CLASSIFICATION: III. PREOPERATIVE DIAGNOSIS: Persistent bilious vomiting. POSTOPERATIVE DIAGNOSES: 1. Bile reflux. 2. Moderate distal chronic gastritis. 3. Acute and chronic gastritis of the body of the stomach. 4. Esophagitis. DESCRIPTION OF PROCEDURE: The patient was taken to the endoscopy room and positioned on the endoscopy table in the supine position. Time-out was called for appropriate identification of the patient and the procedure. Monitored anesthesia care was provided. The bite block was placed between the patient's teeth. The gastroscope was inserted through the bite block into the oropharynx and advanced with minimal difficulty through the esophagus and stomach into the duodenum where examination was now carried out in a retrograde fashion. The duodenum showed no acute inflammatory changes. Bile reflux can be seen in the distal stomach. Antral biopsies were obtained to look for the presence of Helicobacter pylori. The gastroscope was then retroflexed to visualize the proximal stomach which did show a moderately severe acute and chronic gastritis. The gastroscope was then straightened and slowly withdrawn. The body of the stomach was biopsied separately. As the scope was withdrawn through the GE junction, the patient did have some mild esophagitis. Biopsies of the distal esophagus were obtained. The esophagus itself demonstrated good contractility. No mid or proximal lesions were identified. The vocal cords were briefly visualized as the scope was withdrawn and noted to move symmetrically. The gastroscope was then removed with the patient having tolerated the procedure well. She was subsequently taken to recovery room in stable condition. MARY / ROB /[id number]
== END 2021-05-06 08:45 | disposition home or self-care (01) ==
LOC: MW.SDS 06:32
PROVIDERS: ATTEND Surgery
DX: K29.00 Acute gastritis without bleeding (principal); K29.50 Unspecified chronic gastritis without bleeding; K31.7 Polyp of stomach and duodenum; K20.90 Esophagitis, unspecified without bleeding; E78.79 Other disorders of bile acid and cholesterol metabolism; I10 Essential (primary) hypertension; E78.00 Pure hypercholesterolemia, unspecified; M19.90 Unspecified osteoarthritis, unspecified site; E11.9 Type 2 diabetes mellitus without complications; Z79.899 Other long term (current) drug therapy; Z88.0 Allergy status to penicillin; Z88.8 Allergy status to other drugs, medicaments and biological substances; Z87.891 Personal history of nicotine dependence
CPT/HCPCS: 43239; A9270; J2704; J3010; J7120; 00731; 88305; 88342